=== PATIENT | female | born 1995 | race Caucasian/White ===

== ENCOUNTER 2018-12-08 17:35 | Emergency (ER) | payer BC, OTHER ==
[2018-12-08 18:49] VITALS: BP 124/73
--- NOTE | 2018-12-08 18:55 | UC ---
UC General HPI - HPI Summary HPI Summary: pain and swelling L great toe area after she dropped a salt block on it this pm. pt notes the nail looks purple. 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 - History of Current Complaint Stated Complaint: LEFT GREAT TOE INJURY Time Seen by Provider: 12/08/18 18:47 Hx Obtained From: Patient Hx Last Menstrual Period: 11/11/18 Onset/Duration: Sudden Onset Timing: Constant Pain Intensity: 8 Aggravating: pressure - Allergy/Home Medications Allergies/Adverse Reactions: Allergies Allergy/AdvReac Type Severity Reaction Status Date / Time No Known Allergies Allergy Verified 12/08/18 18:50 Home Medications: Home Medications Ibuprofen TAB* [Advil TAB*] 200 mg PO Q8H PRN 12/08/18 [History Confirmed ] PMH/Surg Hx/FS Hx/Imm Hx Previously Healthy: Yes - Surgical History Surgical History: Yes Surgery Procedure, Year, and Place: right eye surgery x5 - Family History Known Family History: Positive: Non-Contributory Negative: Hypertension, Diabetes - Social History Alcohol Use: None Substance Use Type: None Smoking Status (MU): Never Smoked Tobacco - Immunization History Vaccination Up to Date: Yes Review of Systems All Other Systems Reviewed And Are Negative: No Constitutional: Negative: Fever Skin: Negative: Rash Musculoskeletal: Negative: Decreased ROM Neurological: Negative: Numbness Physical Exam Triage Information Reviewed: Yes Appearance: Well-Appearing Vital Signs: Initial Vital Signs Temp 98.9 F 12/08/18 18:47 Pulse 78 12/08/18 18:47 Resp 17 12/08/18 18:47 BP 124/73 12/08/18 18:47 Pulse Ox 100 12/08/18 18:47 Vital Signs Reviewed: Yes Cardiovascular: Positive: RRR Musculoskeletal: Positive: Other: - L foot: great toe tender and swollen. Adjacent foot is tender as well. nail has english but edges reveal a subungual hematoma. Rest of foot is unremarkable. s/v/m is intact. Neurological: Positive: Alert Psychological: Positive: Age Appropriate Behavior Skin Exam: Normal Diagnostics - Radiology No standard instances Radiology Interpretation Completed By: ED Physician - ? chip fx tip great toe Course/Dx - Course Course Of Treatment: pt declined to have the subungual hematoma drained. - Differential Dx - Multi-Symptom Differential Diagnoses: Other - contusion, subungual hematoma and possible chip fx. - Diagnoses Provider Diagnosis: Contusion of great toe of left foot, Subungual hematoma Discharge - Sign-Out/Discharge Documenting (check all that apply): Patient Departure All imaging exams completed and their final reports reviewed: No - Discharge Plan Condition: Stable Disposition: HOME Patient Education Materials: Foot Contusion (ED), Subungual Hematoma (ED), Toe Fracture (ED) Referrals: Ceht Kendrick MD [Medical Doctor] - As Soon As Possible Additional Instructions: post op shoe until cleared - Billing Disposition and Condition Condition: STABLE Disposition: Home
== END 2018-12-08 19:30 | disposition home or self-care (01) ==
LOC: UCCORT 17:35
DX: S90.212A Contusion of left great toe with damage to nail, initial encounter (principal); W20.8XXA Other cause of strike by thrown, projected or falling object, initial encounter; Y92.9 Unspecified place or not applicable
CPT/HCPCS: 99212; G0463

== ENCOUNTER 2019-02-07 16:02 | Emergency (ER) | payer BC ==
[2019-02-07 16:59] VITALS: BP 134/78
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
== END 2019-02-07 17:34 | disposition home or self-care (01) ==
LOC: UCCORT 16:02
DX: H10.32 Unspecified acute conjunctivitis, left eye (principal)
CPT/HCPCS: 99212; G0463

== ENCOUNTER 2019-02-10 10:34 | Emergency (ER) | payer BC ==
[2019-02-10 11:59] VITALS: BP 125/77
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
== END 2019-02-10 12:45 | disposition home or self-care (01) ==
LOC: UCCORT 10:34
DX: H66.92 Otitis media, unspecified, left ear (principal)
CPT/HCPCS: 99212; G0463